=== PATIENT | female | born 1995 | race Two or more races ===

== ENCOUNTER 2018-04-23 19:12 | Emergency (ER) | payer SELFPAY ==
[~2018-04-23] VITALS: Ht 172.7 cm; Wt 72.6 kg
[2018-04-23] MEDS ORDERED: ONDANSETRON 4 MG TAB.RAPDIS SL STA (19:21)
[2018-04-23] MEDS ORDERED: ONDANSETRON 4 MG TAB.RAPDIS ONE (19:27)
[2018-04-23] MEDS ORDERED: IBUPROFEN 600 MG TABLET PO ONE ×2 (19:27→19:30)
[2018-04-23] MEDS ORDERED: HYDROCODONE/APAP 5/325MG 1 EACH TABLET ONE (19:27)
[2018-04-23] MEDS ORDERED: HYDROCODONE/APAP 5/325MG 1 EACH TABLET PO ONE (19:30)
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
--- NOTE | 2018-04-23 19:32 | NUR ---
[employer] AT BEDSIDE FOR REPORT.
--- NOTE | 2018-04-23 20:15 | NUR ---
[facility] BEDSIDE FOR WOUND CARE
--- NOTE | 2018-04-23 20:49 | NUR ---
Patient discharged to home in stable condition. Written and verbal after care instructions given. Patient verbalizes understanding of instruction.
[2018-04-23 20:50] VITALS: BP 126/76
== END 2018-04-23 20:52 | disposition home or self-care (01) ==
LOC: ER 19:14
DX: S01.21XA Laceration without foreign body of nose, initial encounter (principal); S05.11XA Contusion of eyeball and orbital tissues, right eye, initial encounter; W20.8XXA Other cause of strike by thrown, projected or falling object, initial encounter; Y93.89 Activity, other specified; Y92.89 Other specified places as the place of occurrence of the external cause; Y99.8 Other external cause status
CPT/HCPCS: 12011; 70486; 99284; A4606; A6402; Q0162; Z7610